=== PATIENT | male | born 1975 | race Hispanic/Latino ===

== ENCOUNTER 2025-07-26 10:38 | Emergency (ER) | payer BC ==
[~2025-07-26] VITALS: Ht 182.9 cm; Wt 95.3 kg
--- NOTE | 2025-07-26 10:43 | ERN ---
ED Note History of Present Illness Stated Complaint: RIGHT EAR PAIN Chief Complaint: Earache Time Seen by MD: 10:39 Dictation: Patient is a 50-year-old male coming in with his with complaints of having r right ear hearing loss and feels like it is clogged up since Friday. Also according to the , patient has not been himself since Friday in his not been acting the same. She states they did not go to the hospital when they noticed the changes in her and yesterday he was off work. He does not have a primary care doctor. He states he did attempt to remove the ear wax from his right ear with an [id number] ear wax removal kit and only used it for2 minutes. NIH is 0 patient is noted to be tachycardic in triage. Allergies: Coded Allergies: No Known Drug Allergies (Unverified Allergy, Unknown, 07/26/25) Past Medical History RN Note Reviewed/Agreed w/PFSH: Yes Review of System Dictation CONSTITUTIONAL: Negative except for HPI HEAD/FACE: Negative except for HPI EENT: Negative except for HPI decreased hearing loss right ear RESPIRATORY: Negative except for HPI tachycardia GASTROINTESTINAL/ABDOMINAL: Negative except for HPI GENITOURINARY: Negative except for HPI MUSCULOSKELETAL: Negative except for HPI INTEGUMENTARY: Negative except for HPI NEUROLOGICAL/PSYCH: Negative except for HPI altered mental status HEMATOLOGIC/LYMPHATIC: Negative except for HPI All Systems Negative, Except as noted above. 13 point review of systems assessed and all negative except for above. Initial Vital Sign VS Vital Signs Date Time Temp Pulse Resp B/P (MAP) Pulse Ox O2 Delivery O2 Flow Rate FiO2 07/26/25 10:39 98.2 117 18 187/114 98 Room Air 07/26/25 12:34 0 21 Physical Exam Dictation Vital Signs reviewed General Appearance: Alert, oriented x 3, no acute distress, well developed, nourished. 0/10, denies pain Head and Face: non-traumatic. Eyes: PERRL, pink conjunctivas, eyelid no trauma, anterior chamber with arcus senilis. Ears: Pinnas intact and no signs of trauma left ear and otic canal negative unable to visualize right TM due to cerumen impaction. Nose: No discharge, no bleeding. Oropharynx: Mouth normal, tongue pink, pharynx clear,no erythema, tonsils no exudates, no abscesses noted, mucous membrane moist Neck: Supple, non-tender, no thyromegaly, no masses, no JVD, no bruits Breast:Deferred Chest:No tenderness, no crepitus, no paradoxical movement, no retractions Lungs:Clear, well-ventilated, symmetric, no rales, no wheezing, no rhonchi, no stridor, good breath sounds bilaterally Heart: Regular rate, regular rhythm, no murmur, no gallops Vascular: no peripheral edema, Abdomen: Soft, positive bowel sounds, nondistended, no guarding, nontender, no rebound, no masses no hepatomegaly, no splenomegaly, no Mann's sign, no hernias. Rectal: Deferred Genital: Deferred Neurological: Normal speech, motor function intact, sensory function intact NIH is 0, speech is clear gait is steady Musculoskeletal: Neck nontender, full range of motion, back nontender, full range of motion, Extremities: nontender, full range of motion Skin: Color pink, dry, no turgor, no rash, no lacerations, no abrasions, no contusions. Lymphatic: Deferred Results (Laboratory/Radiology) Laboratory/Radiology Laboratory Tests Test 07/26/25 10:52 07/26/25 10:53 07/26/25 12:06 07/26/25 13:18 White Blood Count 6.9 K/uL (4.8-10.8) Red Blood Count 5.57 MIL/uL (4.50-6.20) Hemoglobin 17.0 g/dL (14.0-18.0) Hematocrit 47.7 % (42-54) Mean Corpuscular Volume 85.6 fL (79-99) Mean Corpuscular Hemoglobin 30.5 pg (27.0-33.0) Mean Corpuscular Hemoglobin Concent 35.6 g/dL (32.0-36.0) Red Cell Distribution Width 11.6 % (11.0-15.5) Platelet Count 289 K/uL (130-400) Mean Platelet Volume 9.7 fL (7.5-10.5) Immature Granulocyte % (Auto) 1.0 % (0-1) Neutrophils (%) (Auto) 70.7 % (40.0-77.0) Lymphocytes (%) (Auto) 13.3 % (21.0-51.0) L Monocytes (%) (Auto) 11.1 % (3.0-13.0) Eosinophils (%) (Auto) 2.6 % (0.0-8.0) Basophils (%) (Auto) 1.3 % (0.0-5.0) Neutrophils # (Auto) 4.8 K/uL (1.8-7.7) Lymphocytes # (Auto) 0.9 K/uL (1.0-4.8) L Monocytes # (Auto) 0.8 K/uL (0.1-1.0) Eosinophils # (Auto) 0.18 K/uL (0.00-0.70) Basophils # (Auto) 0.09 K/uL (0.00-0.20) Absolute Immature Granulocyte (auto 0.07 K/uL (0-1) Nucleated Red Blood Cells 0.0 % (0.0-0.19) Sodium Level 129 mmol/L (136-145) L Potassium Level 4.4 mmol/L (3.5-5.1) Chloride Level 91 mmol/L (101-111) L Carbon Dioxide Level 26 mmol/L (21-32) Blood Urea Nitrogen 13 mg/dL (7-18) Creatinine 1.1 mg/dL (0.5-1.3) Glomerular Filtration Rate Calc 83 mL/min (>90) Random Glucose 435 mg/dL (70-105) *H Lactic Acid Level 2.5 mmol/L (0.8-2.5) Total Calcium 9.5 mg/dL (8.5-10.1) Ammonia < 10 umol/L (11-32) L Troponin I High Sensitivity < 4 ng/L (4-75) L Whole Blood Ketones Quantitative 1.7 mmol/L (0.0-0.6) H Urine Color LIGHT-YELLOW (YELLOW) Urine Appearance CLEAR (CLEAR) Urine pH 5.5 (5.0-8.0) Urine Specific [place] 1.039 (1.001-1.031) Urine Protein 30 mg/dL (NEGATIVE) H Urine Glucose (UA) >=1000 mg/dL (NEGATIVE) H Urine Ketones 60 mg/dL (NEGATIVE) H Urine Occult Blood NEGATIVE (NEGATIVE) Urine Nitrate NEGATIVE (NEGATIVE) Urine Bilirubin NEGATIVE mg/dL (NEGATIVE) Urine Urobilinogen 0.2 mg/dL (0.2-1.0) Urine Leukocyte Esterase NEGATIVE Aen/uL Urine RBC 0-1 /HPF (0-1) Urine WBC 0-1 /HPF (0-1) Urine Bacteria None /HPF (None Seen) Urine Opiates Screen NEGATIVE (NEGATIVE) Urine Barbiturates Screen NEGATIVE (NEGATIVE) Urine Phencyclidine Screen NEGATIVE (NEGATIVE) Urine Amphetamines Screen NEGATIVE (NEGATIVE) Urine Benzodiazepines Screen NEGATIVE (NEGATIVE) Urine Cocaine Screen NEGATIVE (NEGATIVE) Urine Marijuana (THC) Screen NEGATIVE (NEGATIVE) Test 07/26/25 13:35 Blood Gas Specimen Type Arterial Arterial Blood pH 7.448 (7.350-7.450) Arterial Blood Partial Pressure CO2 28 mmHg (35-48) L Arterial Blood Partial Pressure O2 87.2 mmHg (83.0-108.0) Arterial Blood HCO3 18.6 mmol/L (21.0-28.0) L Arterial Blood Oxygen Saturation 97.1 % (94.0-98.0) Arterial Blood Base Excess -3.8 mmol/L (-2.0-3.0) L Blood Gas Temperature 37.0 CELSIUS (35.5-37.0) Blood Gas Vent Mode RA (ROOM AIR) FiO2 21.0 % Blood Gas Specimen Comment RRFRANK CLINICAL HISTORY: ALTERED MENTAL STATUS, ONSET FRIDAY TECHNIQUE: Axial computed tomography images of the head/brain without intravenous contrast. COMPARISON: None provided. FINDINGS: BRAIN: Ill-defined hypodensity in the left gangliocapsular region and left sorensen radiata. No evidence of acute hemorrhage. No mass lesion. No midline shift or extra-axial collections. VENTRICLES: No hydrocephalus. ORBITS: The orbits are unremarkable. SINUSES AND MASTOIDS: The paranasal sinuses and mastoid air cells are clear. BONES: No fracture. SOFT TISSUES: Unremarkable. IMPRESSION: 1. Ill-defined hypodensity in the left gangliocapsular region and left sorensen radiata, concerning for acute to subacute ischemic stroke. Suggested MRI of the brain. /[place] 1340/ABGS DONE PH IS 7.44, CO2 27.5 PO2 87.2 WE WILL CALL [facility] TO INFORM Labs Reviewed?: Yes EKG Comment: EKG sinus tachycardia/heart rate 119/axis normal/no ectopy ED Course ED Course Orders Procedure Category Date Status Time Blood Cult CONSUELO 07/26/25 In Process 10:40 Lactic Acid LAB 07/26/25 Complete 10:40 Cbc With Differential LAB 07/26/25 Complete 10:40 Troponin I High LAB 07/26/25 Complete Sensitivity 10:40 Urinalysis Profile LAB 07/26/25 Complete 10:40 12 Lead Ekg Tracing- EKG 07/26/25 Logged Technical 10:40 Basic Metabolic Panel LAB 07/26/25 Complete 10:40 Drug Screen Urine LAB 07/26/25 Complete 10:40 Ct Head/Brain W/O CT 07/26/25 Resulted Contrast 10:48 Ammonia LAB 07/26/25 Complete 10:53 0.9%Nacl 1000ml (Ns PHA 07/26/25 Complete 1000ml) 11:30 Ceftriaxone 2gm Vial PHA 07/26/25 Complete (Rocephin 2gm Inj) 11:30 Chest 1vw RAD 07/26/25 Resulted 11:20 Ketone Blood LAB 07/26/25 Complete Quantitative 11:27 Insulin Regular, PHA 07/26/25 Complete Human 3ml (Humulin R 11:30 Arterial Blood Gas RT 07/26/25 Transmitted 12:57 Arterial Blood Gas LAB 07/26/25 Complete 13:35 Lactic Acid (Removed) LAB 07/26/25 Logged 14:05 Hydralazine 20mg Inj PHA 07/26/25 Complete (Apresoline 20mg In 15:30 Current Medications Medications (Trade) Dose Ordered Sig/Ovidio Route PRN Reason Start Time Stop Time Status Last Admin Dose Admin Ceftriaxone Sodium (Rocephin 2gm Inj) 2 gm ONCE ONCE IVPB 07/26/25 11:30 07/26/25 11:31 DC 07/26/25 12:51 Hydralazine HCl (APRESOLine 20MG INJ) 10 mg ONCE ONCE IV 07/26/25 15:30 07/26/25 15:31 DC Insulin Human Regular (humuLIN R 100 UNIT/ML 3ML) 10 unit ONCE ONCE IV 07/26/25 11:30 07/26/25 11:31 DC 07/26/25 12:53 Sodium Chloride 2,859 ml @ 953 mls/hr ONCE ONCE IV 07/26/25 11:30 07/26/25 14:29 DC 07/26/25 12:51 Vital Signs Date Time Temp Pulse Resp B/P (MAP) Pulse Ox O2 Delivery O2 Flow Rate FiO2 07/26/25 12:34 98.2 117 18 187/114 98 Room Air* 0 21 07/26/25 10:39 98.2 117 18 187/114 98 Room Air 1118/LACTIC ACID 2.5. PATIENT WILL BE GIVEN 30 PER KILOS FLUIDS WHO ROCEPHIN 2 G. PATIENT REMAINS IN THE WAITING ROOM WE WILL DISCUSS PATIENT'S CONDITION WITH CHARGE NURSE TO FIND A BED. 1230/PATIENT IS AT A LEFT GANGLIO CAPSULAR CVA. IN ADDITION HE HAS A NEW ONSET DIABETIC WITH A ELEVATED ENZYMES, THE ANION GAP IS 16. SPOKE WITH PATIENT AND HER AT LENGTH REGARDING TRANSFER TO HIGHER LEVEL CARE AND THE FINDINGS ON THE CLINICAL LABS. THEY BOTH AGREED TO TRANSFER TO A HIGHER LEVEL OF CARE. NIH score remains 0 1255/spoke with diana at [facility] transfer center and . Accept patient for transfer however he would like ABGs to check pH 1342/SPOKE WITH AT [facility] AND HE AGREED TO ACCEPT PATIENT NO NEED FOR DKA PROTOCOL AT THIS TIME.1535/ 1535/SPOKE WITH IN THE EMERGENCY ROOM AT [facility] AND REVIEWED CT LABS EKG AND THEY AGREED TO ER TO ER TRANSFER. BHANU LOYAVEIN ACCESS TECHNICIAN NURSE MADE AWARE. HEART Score Response (Comments) Value History: Low suspicion (0) 0 EKG: Normal 0 Age: 45-65yrs (+1) 1 Risk Factors: 1-2 risk factors (+1) 1 Initial Troponin: Normal limit (0) 0 Total 2 Medical Decision Making MDM MDM: DIFFERENTIAL DIAGNOSIS: CVA/BLEED/ACS/AMI/ELECTROLYTE IMBALANCE/DEHYDRATION/SEPSIS/ARRHYTHMIA RATIONALE: TESTS CONSIDERED AND ORDERED SECONDARY TO SHARED DECISION MAKING INCLUDE: CT/LABS/EKG PREVIOUS OUTSIDE RECORDS REVIEWED: OLD ER VISITS. RISK OF COMPLICATION AND/OR MORBIDITY OR MORTALITY OF PATIENT MANAGEMENT: MODERATE, PATIENT WILL NEED TRANSFER TO HIGHER LEVEL OF CARE MEDICATIONS-PER MEDICATION RECONCILIATION NEED FOR HOSPITALIZATION: PATIENT DOES NOT MEET CRITERIA FOR HOSPITALIZATION. PATIENT WILL NEED TRANSFER TO HIGHER LEVEL OF CARE FOR NEUROLOGIC EVALUATION OF ACUTE CVA UNCONTROLLED DIABETES NEED FOR EMERGENCY MAJOR/MINOR SURGERY: NO THERE ARE NO SOCIAL CONCERNS WITH THIS PATIENT. ALCOHOL ABUSE, NONCOMPLIANT WITH HIS MEDICAL CARE PRESCRIPTION DRUG MANAGEMENT PRESCRIPTIONS WILL INCLUDE SYMPTOMATIC CARE PATIENT'S PRIOR EXTERNAL MEDICAL RECORDS FROM OTHER ER VISITS WERE REVIEWED BY ME INDICATED. PRIOR TESTING AND RESULTS FROM PREVIOUS VISITS WERE REVIEWED. PRIOR TESTS WERE TAKEN INTO ACCOUNT WITH MEDICAL DECISION MAKING AND RESOURCE UTILIZATION, INDEPENDENT HISTORIAN/HISTORIANS WERE USED TO OBTAIN COMPLETE MEDICAL HISTORY. I INDEPENDENTLY INTERPRETED THE TEST THAT WERE PERFORMED, RESULTS WERE REVIEWED BY ME AND CONSIDERED FINDINGS ON RADIOLOGY IF ORDERED. MEDICAL MANAGEMENT AND EXAMINATION INTERPRETATION DISCUSSIONS WERE HAD BY ME WITH OTHER QUALIFIED HEALTHCARE PROFESSIONALS INDICATED FOR THE PATIENT'S CARE. DX & DISP Disposition: Transfer Departure Impression: Primary Impression: CVA (cerebrovascular accident) Additional Impressions: Hyponatremia, Uncontrolled diabetes mellitus, Dehydration, Hypochloremia, Uncontrolled hypertension, Medically noncompliant, Alcohol abuse Condition: Stable Time of Disposition: 13:44 I have reviewed the case, and I agree with, Diagnosis and Plan SHEILA HERCULES NP Jul 26, 2025 10:43
[2025-07-26 11:15] LABS: IMMATURE GRANULOCYTE ABSOLUTE 0.07 K/uL (0-1); NUCLEATED RED BLOOD CELLS 0.0 % (0.0-0.19); PLATELET COUNT (AUTO) 289 K/uL (130-400); RED BLOOD CELL COUNT(AUTO) 5.57 MIL/uL (4.50-6.20); RED CELL DISTRIBUTION WIDTH 11.6 % (11.0-15.5); WHITE BLOOD COUNT (AUTO) 6.9 K/uL (4.8-10.8)
[2025-07-26 11:22] LABS: CREATININE 1.1 mg/dL (0.5-1.3); GLOMERULAR FILTR. RATE CALC 83 mL/min (>90); SODIUM SERUM 129 mmol/L (136-145); UREA NITROGEN, BLOOD 13 mg/dL (7-18)
[2025-07-26 11:25] LABS: GLUCOSE,RANDOM 435 mg/dL (70-105)
--- NOTE | 2025-07-26 12:12 | HMCIMG ---
EXAM: CT Head Without IV contrast. CLINICAL HISTORY: ALTERED MENTAL STATUS, ONSET FRIDAY TECHNIQUE: Axial computed tomography images of the head/brain without intravenous contrast. COMPARISON: None provided. FINDINGS: BRAIN: Ill-defined hypodensity in the left gangliocapsular region and left sorensen radiata. No evidence of acute hemorrhage. No mass lesion. No midline shift or extra-axial collections. VENTRICLES: No hydrocephalus. ORBITS: The orbits are unremarkable. SINUSES AND MASTOIDS: The paranasal sinuses and mastoid air cells are clear. BONES: No fracture. SOFT TISSUES: Unremarkable. IMPRESSION: 1. Ill-defined hypodensity in the left gangliocapsular region and left sorensen radiata, concerning for acute to subacute ischemic stroke. Suggested MRI of the brain. /[place]
--- NOTE | 2025-07-26 12:17 | HMCIMG ---
EXAM: CR Chest, 1 View. CLINICAL HISTORY: SOB/COUGH COMPARISON: None provided. FINDINGS: There is a large body habitus with considerable soft tissue attenuation overlying the chest. LUNGS: There is no mass, infiltrate, or acute pulmonary abnormality. PLEURAL SPACES: No evidence of pleural effusion or pneumothorax. MEDIASTINUM: The cardiomediastinal silhouette is within normal limits. BONES: No acute osseous abnormality. IMPRESSION: No acute cardiopulmonary pathology is evident. /[place]
--- NOTE | 2025-07-26 12:43 | NUR ---
SPOKE TO [facility] WITH YESSENIA HARGROVE IN REGARDS TO PT TRANSFER.
[2025-07-26] MEDS: 0.9%NACL 1000ML 2,859 ML IV ONE (12:51)
--- NOTE | 2025-07-26 13:06 | NUR ---
RT CALLED FOR ABG
[2025-07-26 13:33] LABS: APPEARANCE,URINE CLEAR (CLEAR); GLUCOSE, URINE (UA) >=1000 mg/dL (NEGATIVE); LEUKOCYTE ESTERASE ,URINE NEGATIVE Leu/uL (NEGATIVE); NITRATE,URINE NEGATIVE (NEGATIVE); OCCULT BLOOD,URINE NEGATIVE (NEGATIVE)
[2025-07-26 13:37] LABS: ABG BASE EXCESS -3.8 mmol/L (-2.0-3.0); ABG HCO3 18.6 mmol/L (21.0-28.0); ABG OXYGEN SATURATION 97.1 % (94.0-98.0); ABG PCO2 28 mmHg (35-48); ABG PH 7.448 (7.350-7.450); DEVICE COMMENT RRFRANK; PO2, ARTERIAL BG 87.2 mmHg (83.0-108.0); TEMPERATURE, CELSIUS BG 37.0 CELSIUS (35.5-37.0); VENT MODE, BG RA (ROOM AIR)
[2025-07-26 13:37] LABS: AMPHET/METH SCREEN,URINE NEGATIVE (NEGATIVE); BARBITURATE SCREEN, URINE NEGATIVE (NEGATIVE); CANNABINOID SCREEN,URINE NEGATIVE (NEGATIVE); COCAINE SCREEN,URINE NEGATIVE (NEGATIVE)
[2025-07-26 13:42] LABS: ADD UA MICROSCOPIC YES
--- NOTE | 2025-07-26 14:20 | NUR ---
TRANSFER MET WITH PT AND SPOUSE INFORM OF TRANSFER PROCESS BOTH VERBALIZED UNDERSTANDING AND CONSENT SIGN FOR TRANSFER, AYUSH LOYA
--- NOTE | 2025-07-26 15:36 | NUR ---
TRANSFER CALL BACK FROM [facility] INTAKE NURSE WITH ACCEPTANCE UNDER DR EVA VELÁSQUEZ AT 1347 TO ER . PRIMARY NURSE TO CALL REPORT TO [phone] AND EMS WHEN READY. AYUSH LOYA
[2025-07-26 16:23] VITALS: BP 154/92; PULSE 92; RESP 18; TEMP 98.2; O2SAT 98
--- NOTE | 2025-07-26 16:41 | NUR ---
SHEILA VALDEZ SPOKE TO DR SULTANA AND DR VELÁSQUEZ AT [facility], REPORT CALLED TO [facility]
--- NOTE | 2025-07-26 16:43 | NUR ---
[facility] HERE FOR PT TRANSFER
--- NOTE | 2025-07-26 18:29 | EKG ---
[facility] Test Date: 2025-07-26 Test Time: 10:42:31 Pat Name: SANJANA WARD Department: ED Room: Gender: M Sensitometrist: [id number] : 1975 Requested By: SHEILA HERCULES Order Number: [id number] Reading MD: Josse Hernandez Measurements Intervals [place] Rate: 119 P: 59 PA: 138 QRS: 14 QRSD: 87 T: 28 QT: 317 QTc: 445 Interpretive Statements Sinus tachycardia No previous ECG available for comparison Electronically Signed On 07-27-2025 14:34:29 CDT by Josse Hernandez Please click the below link to view image of tracing.
== END 2025-07-26 16:48 | disposition home or self-care (01) ==
LOC: EDH 10:38
DX: I63.9 Cerebral infarction, unspecified (principal); E87.1 Hypo-osmolality and hyponatremia; E11.65 Type 2 diabetes mellitus with hyperglycemia; E86.0 Dehydration; F10.10 Alcohol abuse, uncomplicated; I10 Essential (primary) hypertension; Z91.199 Patient's noncompliance with other medical treatment and regimen due to unspecified reason
CPT/HCPCS: 99285; 96374; 70450; 96375; 71045; 84484; 80048; 82803; 80305; 82140; 85025; 87040 ×2; 82948; 83605; 82010; 81001; 36415; 93005; 36600; J1815; J7030; J0696; J0360